=== PATIENT | female | born 1975 | race Hispanic/Latino ===

== ENCOUNTER 2018-06-08 07:55 | Inpatient (IN) | payer MEDICAID, OTHER ==
[2018-06-08] VITALS (12 sets, daily range): BP systolic 89–114; BP diastolic 50–66
[~2018-06-08 07:55] MED LIST: CIPR-245 PO; INSU100V12 SQ
[2018-06-08] MEDS ORDERED: SODIUM CHLORIDE 0.9% 1000ML 1,000 ML IV ONE (08:20)
[2018-06-08] MEDS ORDERED: ONDANSETRON HCL 4 MG/2 ML VIAL ONE (08:20)
[2018-06-08 08:29] LABS: BASOPHILS % (AUTO) 0.2 % (0.0-5.0); HEMATOCRIT 43.8 % (36-48); LYMPHOCYTES % (AUTO) 5.1 % (21.0-51.0); MEAN CORPUSCULAR HEMOGLOBIN 26.6 pg (27.0-33.0); MEAN CORPUSCULAR HGB CONC 28.9 g/dL (32.0-36.0); MEAN CORPUSCULAR VOLUME 91.9 fL (79-99); MONOCYTES % (AUTO) 4.2 % (3.0-13.0); NEUTROPHILS % (AUTO) 90.5 % (40.0-77.0); PLATELET COUNT (AUTO) 330 K/uL (130-400); RED BLOOD CELL COUNT(AUTO) 4.76 MIL/uL (4.00-5.50); RED CELL DISTRIBUTION WIDTH 15.4 % (11.0-15.5); WHITE BLOOD COUNT (AUTO) 19.2 K/uL (4.8-10.8)
[2018-06-08 09:13] LABS: BILIRUBIN,TOTAL 0.6 mg/dL (0.2-1.0); CREATININE 2.1 mg/dL (0.5-1.5); TOTAL PROTEIN, SERUM 8.9 g/dL (6.0-8.3)
[2018-06-08 09:16] LABS: POTASSIUM 6.6 mmol/L (3.5-5.1)
[2018-06-08 09:59] LABS: HEMOGLOBIN A1C 9.4 % (4.0-6.0)
[2018-06-08] MEDS ORDERED: INSULIN REGULAR, HUMAN 3ML 100 UNIT in SODIUM CHLORIDE 0.9% 99 ML IV PRN ×4 (10:00→19:15)
[2018-06-08 10:05] LABS: MAGNESIUM 2.8 mg/dL (1.80-2.40); PHOSPHORUS 9.6 mg/dL (2.5-4.9)
[2018-06-08] MEDS ORDERED: CALCIUM GLUCONATE 1 GM/10 ML VIAL IV ONE (10:16)
[2018-06-08] MEDS ORDERED: SODIUM BICARB 50MEQ 50ML VIAL ONE (10:16)
[2018-06-08] MEDS: SODIUM CHLORIDE 0.9% 1000ML 1,000 ML IV SCH ×6 (10:25→23:00)
[2018-06-08 10:27] LABS: ABG BASE EXCESS -26.6 mmol/L (-2.0-3.0); ABG HCO3 3.1 mmol/L (21.0-28.0); ABG OXYGEN SATURATION 97.4 % (95.0-99.0); ABG PCO2 < 15 mmHg (32-45)
[2018-06-08] MEDS ORDERED: MORPHINE SULFATE 2 MG/ML 1ML SYG IV PRN (10:30)
[2018-06-08] MEDS ORDERED: ONDANSETRON HCL 4 MG/2 ML VIAL IV PRN (10:30)
[2018-06-08] MEDS ORDERED: ZOLPIDEM TARTRATE 5 MG TAB PO PRN (10:30)
[2018-06-08] MEDS ORDERED: ACETAMINOPHEN 325 MG TAB PO PRN (10:30)
[2018-06-08 13:26] LABS: CREATININE 1.8 mg/dL (0.5-1.5); MAGNESIUM 2.6 mg/dL (1.80-2.40); POTASSIUM 5.2 mmol/L (3.5-5.1)
[2018-06-08 14:12] LABS: APPEARANCE,URINE Clear (CLEAR); BILIRUBIN,URINE Negative (NEGATIVE); COLOR,URINE Yellow (YELLOW); GLUCOSE, URINE (UA) >=1000 mg/dL (NEGATIVE); KETONES,URINE >=160 mg/dL (NEGATIVE); LEUKOCYTE ESTERASE ,URINE Negative (NEGATIVE); NITRATE,URINE Negative (NEGATIVE); OCCULT BLOOD,URINE Small (NEGATIVE); PROTEIN,URINE POS 1+ (NEGATIVE); UROBILINOGEN,URINE 0.2 mg/dL (0.2-1.0)
[2018-06-08 14:38] LABS: BACTERIA,URINE Rare /HPF (None Seen); MUCUS,URINE Rare LPF (None Seen); RBC,URINE None Seen /HPF (0-1); SQUAMOUS EPITHELIAL CELL,UR 0-2 /HPF (0-2); WBC,URINE 0-1 /HPF (0-1)
[2018-06-08 17:10] LABS: CREATININE 1.5 mg/dL (0.5-1.5); MAGNESIUM 2.3 mg/dL (1.80-2.40); PHOSPHORUS 3.7 mg/dL (2.5-4.9); POTASSIUM 4.6 mmol/L (3.5-5.1)
[2018-06-08] MEDS ORDERED: DEXTROSE 10%-WATER 1,000 ML IV SCH (19:45)
[2018-06-08] MEDS ORDERED: DEXTROSE 10%-WATER 1,000 ML IV ONE (19:51)
[2018-06-08 22:20] LABS: CREATININE 1.3 mg/dL (0.5-1.5); MAGNESIUM 2.1 mg/dL (1.80-2.40); POTASSIUM 4.2 mmol/L (3.5-5.1)
[2018-06-09] VITALS (12 sets, daily range): BP systolic 86–115; BP diastolic 38–68
[2018-06-09] MEDS: SODIUM CHLORIDE 0.9% 1000ML 1,000 ML IV SCH ×2 (01:25→06:10)
[2018-06-09 03:49] LABS: CREATININE 1.2 mg/dL (0.5-1.5); PHOSPHORUS 1.8 mg/dL (2.5-4.9); POTASSIUM 3.7 mmol/L (3.5-5.1)
[2018-06-09] MEDS: ENOXAPARIN SODIUM 40 MG/0.4 ML SYRINGE SQ SCH (08:36)
[2018-06-09] MEDS ORDERED: PANTOPRAZOLE 40 MG/VIAL IVP SCH (09:00)
[2018-06-09 09:31] LABS: MAGNESIUM 1.8 mg/dL (1.80-2.40); PHOSPHORUS 1.3 mg/dL (2.5-4.9); POTASSIUM 3.2 mmol/L (3.5-5.1)
[2018-06-09] MEDS ORDERED: DEXTROSE 50%-WATER 50 ML DISP.SYRIN IV PRN (12:30)
[2018-06-09] MEDS ORDERED: GLUCAGON 1MG KIT 1 MG ML IM PRN (12:30)
[2018-06-09 15:12] LABS: CREATININE 1.2 mg/dL (0.5-1.5); POTASSIUM 3.4 mmol/L (3.5-5.1)
[2018-06-09] MEDS: INSULIN HUMULIN R 100 UNIT/ML 3ML SQ SCH ×2 (15:52→20:30)
[2018-06-09] MEDS ORDERED: INVOK100TB PO (17:04)
[2018-06-09] MEDS ORDERED: METF-527 PO (17:04)
[2018-06-09] MEDS ORDERED: EXEN5PEN2 SQ (17:04)
[2018-06-09 18:48] LABS: CREATININE 1.2 mg/dL (0.5-1.5); MAGNESIUM 2.1 mg/dL (1.80-2.40); PHOSPHORUS 1.6 mg/dL (2.5-4.9)
[2018-06-09 18:56] LABS: POTASSIUM 4.3 mmol/L (3.5-5.1)
[2018-06-09] MEDS: METFORMIN HCL 500 MG TABLET PO SCH (20:40)
[2018-06-09] MEDS: INSULIN LISPRO 100 UNIT/ML 3ML SQ SCH (20:44)
[2018-06-09] MEDS: LINAGLIPTIN 5 MG TABLET PO SCH (20:51)
[2018-06-09] MEDS ORDERED: INSULIN GLARGINE 100 UNITS/ML 10 ML VIAL SQ SCH (21:00)
[2018-06-09 22:19] LABS: CREATININE 1.2 mg/dL (0.5-1.5); POTASSIUM 4.1 mmol/L (3.5-5.1)
[2018-06-10] VITALS: BP 96/63
[2018-06-10 04:00] VITALS: BP 103/64
[2018-06-10] MEDS: INSULIN LISPRO 100 UNIT/ML 3ML SQ SCH ×3 (06:35→16:45)
[2018-06-10] MEDS: METFORMIN HCL 500 MG TABLET PO SCH (08:00)
[2018-06-10 08:22] VITALS: BP 115/67
[2018-06-10] MEDS ORDERED: PANTOPRAZOLE SODIUM 40 MG TABLET.DR PO SCH (09:00)
[2018-06-10] MEDS: ENOXAPARIN SODIUM 40 MG/0.4 ML SYRINGE SQ SCH (09:12)
[2018-06-10 09:46] LABS: CREATININE 0.9 mg/dL (0.5-1.5); PHOSPHORUS 1.6 mg/dL (2.5-4.9); POTASSIUM 3.9 mmol/L (3.5-5.1)
[2018-06-10] MEDS ORDERED: LINA5TAB PO (10:02)
[2018-06-10] MEDS ORDERED: INSLAN SQ (10:02)
[2018-06-10 12:00] VITALS: BP 98/51
[2018-06-10 13:14] LABS: CREATININE 0.8 mg/dL (0.5-1.5); MAGNESIUM 2.1 mg/dL (1.80-2.40); PHOSPHORUS 1.8 mg/dL (2.5-4.9); POTASSIUM 4.4 mmol/L (3.5-5.1)
[2018-06-10] MEDS: LINAGLIPTIN 5 MG TABLET PO SCH (14:57)
[2018-06-10 16:15] VITALS: BP 118/60
== END 2018-06-10 17:52 | disposition home or self-care (01) | DRG 682 ==
LOC: EDH 07:55 → EDHIP 07:56 → 2CH 11:58 → 3DH 06-09 15:36
PROVIDERS: ADMIT Internal Medicine; ATTEND Internal Medicine
DX: N17.9 Acute kidney failure, unspecified (principal); E11.10 Type 2 diabetes mellitus with ketoacidosis without coma; E87.1 Hypo-osmolality and hyponatremia; E86.1 Hypovolemia; E86.0 Dehydration; E87.5 Hyperkalemia; I10 Essential (primary) hypertension; E78.2 Mixed hyperlipidemia; Z79.4 Long term (current) use of insulin
CPT/HCPCS: 36415; 36600; 71045; 80048; 80053; 81001; 81025; 82009; 82550; 82803; 82947; 82948; 83036; 83605; 83735; 84100; 84484; 85025; 87804; 93005; 99291; A4357; C9113; J0610; J1650; J1815; J2405; J3490; J7030